=== PATIENT | male | born 2000 | race African-American/Black ===

== ENCOUNTER 2024-04-03 14:57 | Emergency (ER) | payer OTHER ==
[~2024-04-03] VITALS: Ht 177.8 cm; Wt 65.5 kg
[~2024-04-03 14:57] MED LIST: IBUP-2213 PO; TIZA4CAP PO
[2024-04-03 15:08] VITALS: BP 138/77; PULSE 80; RESP 16; TEMP 98.5; O2SAT 95
== END 2024-04-03 17:20 | disposition home or self-care (01) ==
LOC: MED 14:57
DX: I83.813 Varicose veins of bilateral lower extremities with pain (principal); F12.90 Cannabis use, unspecified, uncomplicated; Z79.899 Other long term (current) drug therapy
CPT/HCPCS: 99281

== ENCOUNTER 2024-04-12 12:12 | Emergency (ER) | payer OTHER ==
[~2024-04-12] VITALS: Ht 170.2 cm; Wt 64.9 kg
[2024-04-12 12:21] VITALS: BP 122/57; PULSE 69; RESP 16; TEMP 97.8; O2SAT 99
[2024-04-12 14:48] LABS: BASOPHILS % (AUTO) 0.6 % (0.0-2.0); EOSINOPHILS % (AUTO) 0.4 % (0.0-4.0); HEMATOCRIT 44.7 % (36-52); LYMPHOCYTES # (AUTO) 2.1 K/uL (2.0-11.5); LYMPHOCYTES % (AUTO) 31.7 % (20.5-51.1); MEAN CORPUSCULAR HEMOGLOBIN 30 pg (27-31); MEAN CORPUSCULAR HGB CONC 34 g/dL (33-37); MONOCYTES # (AUTO) 0.6 K/uL (0.8-1.0); MONOCYTES % (AUTO) 8.6 % (1.7-9.3); NEUTROPHILS # (AUTO) 3.8 K/uL (1.8-7.7); NEUTROPHILS % (AUTO) 58.7 % (42.2-75.2); PLATELET COUNT (AUTO) 281 K/uL (140-450); RED BLOOD CELL COUNT(AUTO) 5.02 MIL/uL (4.20-6.10); RED CELL DISTRIBUTION WIDTH 12.9 % (11.6-13.7); WHITE BLOOD COUNT (AUTO) 6.5 K/uL (4.8-10.8)
[2024-04-12 14:54] LABS: ANION GAP 15.8 (8-16); CALCIUM 9.7 mg/dL (8.5-10.1); CARBON DIOXIDE 27.5 mmol/L (21-32); POTASSIUM 4.3 mmol/L (3.5-5.1)
[2024-04-12] MEDS ORDERED: PRED20TA5 PO (15:38)
[2024-04-12] MEDS ORDERED: IBUP-2213 PO (15:38)
[2024-04-12 16:00] VITALS: BP 122/57; PULSE 69; RESP 16; TEMP 97.8; O2SAT 99
== END 2024-04-12 16:00 | disposition home or self-care (01) ==
LOC: MED 12:12
DX: R07.89 Other chest pain (principal); R05.9 Cough, unspecified; F12.90 Cannabis use, unspecified, uncomplicated; Z79.899 Other long term (current) drug therapy
CPT/HCPCS: 36415; 80048; 85025; 85379; 93005; 99284

== ENCOUNTER 2024-05-16 09:23 | Emergency (ER) | payer OTHER ==
[~2024-05-16] VITALS: Ht 172.7 cm; Wt 68.0 kg
[~2024-05-16 09:23] MED LIST changes: +PRED20TA5 PO
[2024-05-16 09:28] VITALS: BP 120/75; PULSE 75; RESP 17; TEMP 98.3; O2SAT 99
[2024-05-16] MEDS: IBUPROFEN 600 MG TAB PO ONE (10:21)
== END 2024-05-16 10:26 | disposition home or self-care (01) ==
LOC: MED 09:23
DX: M79.672 Pain in left foot (principal); Z79.899 Other long term (current) drug therapy
CPT/HCPCS: 73630; 99283